=== PATIENT | female | born 1975 | race African-American/Black ===

== ENCOUNTER 2019-09-02 11:50 | Emergency (ER) | payer SELFPAY ==
[~2019-09-02] VITALS: Ht 165.1 cm; Wt 117.0 kg
[2019-09-02 12:19] VITALS: BP 141/71
[2019-09-02] MEDS ORDERED: HYDROCODONE/ACETAMINOPHEN 5/325MG TABLET PO ONE (14:30)
== END 2019-09-02 15:06 | disposition home or self-care (01) ==
LOC: ER 11:50
DX: M79.672 Pain in left foot (principal); M79.671 Pain in right foot; E11.9 Type 2 diabetes mellitus without complications; Z88.6 Allergy status to analgesic agent
CPT/HCPCS: 99283